=== PATIENT | female | born 1960 | race Hispanic/Latino ===

== ENCOUNTER 2017-04-06 09:08 | Day surgery (SDC) | payer OTHER ==
[~2017-04-06] VITALS: Ht 160 cm; Wt 70.0 kg
[~2017-04-06 09:08] MED LIST: 0.9% Sodium Chloride 1,000 ML IV PRN; LISI10TA PO; METF-778 PO; NPR500T PO; SIMV20TA4 PO; SITA50TA PO; Sodium Chloride LOK Flush 10 mL Syringe IV PRN; fentaNYL-PF 50 mCg/mL 2 mL Inj IVPUSH PRN
[2017-04-06 09:28] VITALS: BP 144/92; PULSE 80; RESP 16; O2SAT 99
[2017-04-06 10:29] VITALS: BP 115/71; PULSE 76; RESP 16; O2SAT 99
--- NOTE | 2017-04-06 10:29 | PCM.ENDCOL ---
Colonoscopy Date of Service: Apr 06, 2017 Physician Prosper Calles MD Pre Procedure Diagnosis: Screening FIT positive Post Procedure Dx & Findings: Diverticuli hemorrhoids Procedure Colonoscopy PROCEDURE IN DETAIL: Prep adequate Withdrawal time 14 minutes After unremarkable rectal examination the Olympus video colonoscope was inserted patient's anal canal and was advanced to cecum. Landmarks were identified including the ileocecal valve and appendiceal orifice. Scope was withdrawn systematically. Visualized colonic mucosa showed healthy shiny mucosa with normal healthy-appearing vasculature. Patient had diverticulosis mostly in the sigmoid and descending colon small to large in size all the way into the cecum. In the rectum retroflexion was done which showed hemorrhoids. Anal canal was inspected carefully on the way out and hemorrhoids noted. Impression Diverticuli of the entire colon Hemorrhoids Recommendation Repeat colonoscopy in 10 years if there is no personal or family history of colon cancer polyp. If so repeat in 5 years. Diverticular diet Presedation Assessment Risks and Benefits Informed consent was obtained from the patient after all risks and benefits including but not limited to drug reaction, infection, pain, bleeding, perforation, as well as alternatives were discussed. Patient monitoring Continuous pulse oximetry, cardiac monitoring, blood pressure monitoring, IV access, and oxygen at 2L per nasal cannula. Periprocedural Fentanyl: Fentanyl 100mcg Incrementally Midazolam: Midazolam 5mg Incrementally Complications There were no periprocedural complications identified. Post Procedure Plan Post Procedure Recommendations 1. Restrict activities today. 2. Resume normal activities in the morning. 3. Resume medications. 4. Patient informed of normal post procedure side effects as bloating, drowsiness, blood streaking in the stool. 5. average risk CRCS. If colon polyps come back as: -Hyperplastic- can repeat colonoscopy in 10 years -Tubular adenoma- repeat colonoscopy in 5 years -Tubulovillous/villous adenoma- repeat colonoscopy in 3 years -If any dysplasia- return to clinic as soon as possible 6. Please don't hesitate to call me with any questions. Prosper Calles MD Apr 06, 2017 10:29
[2017-04-06 10:38] VITALS: BP 115/71; PULSE 72; RESP 16; O2SAT 99
[2017-04-06 10:47] VITALS: BP 107/75; PULSE 74; RESP 16; O2SAT 98
== END 2017-04-06 23:59 | disposition home or self-care (01) ==
LOC: END 09:08
PROVIDERS: ATTEND Internal Medicine
DX: Z12.11 Encounter for screening for malignant neoplasm of colon (principal); K57.30 Diverticulosis of large intestine without perforation or abscess without bleeding; K64.8 Other hemorrhoids; I10 Essential (primary) hypertension; E11.9 Type 2 diabetes mellitus without complications
CPT/HCPCS: 99153; G0121; G0500; J2250; J3010; J7030